=== PATIENT | male | born 1950 | race Asian ===

== ENCOUNTER 2022-02-17 19:03 | Emergency (ER) | payer BC ==
[2022-02-17 19:18] VITALS: BP 104/85; PULSE 102; RESP 19; TEMP 98.6; BMI 26.4
[2022-02-17] MEDS ORDERED: ENOXAPARIN NA (PORCINE) 30 MG/0.3 ML DISP.SYRIN SQ ONE ×2 (20:38→20:44)
== END 2022-02-17 20:49 | disposition home or self-care (01) ==
LOC: JER 19:03 → JERFT 19:03
PROC: 3E023GC Introduction of Other Therapeutic Substance into Muscle, Percutaneous Approach (ICD-10-PCS; principal; 2022-02-17)
DX: I82.411 Acute embolism and thrombosis of right femoral vein (principal)
CPT/HCPCS: 96372; 99284-25